=== PATIENT | male | born 1995 | race Caucasian/White ===

== ENCOUNTER 2023-03-06 09:57 | Emergency (ER) | payer SELFPAY ==
[2023-03-06 10:10] VITALS: RESP 18
[2023-03-06] MEDS ORDERED: SODIUM CHLORIDE 0.9% 500 ML 500 ML IV STA (10:27)
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
[2023-03-06] MEDS ORDERED: KETOROLAC 15 MG/ML 1 ML VIAL IVP STA (10:38)
[2023-03-06] MEDS ORDERED: BACITRACIN OINT 1 EACH PACKET TOPICAL ONE (10:38)
[2023-03-06 10:52] LABS: Basophils % (A) 0 %; Eosinophils # (A) 0.3 k/uL (0-0.7); Eosinophils % (A) 4 %; HCT 44.4 % (39.0-53.0); HGB 14.6 gm/dL (13.0-17.5); Lymphocytes # (A) 2.6 k/uL (1.0-4.8); Lymphocytes % (A) 37 %; MCH 26.5 pg (25.0-35.0); MCHC 32.9 g/dL (31.0-37.0); MCV 80.3 fL (80.0-100.0); Mean Platelet Volume 8.1; Monocytes # (A) 0.3 k/uL (0-1.0); Monocytes % (A) 4 %; Neutrophils # (A) 3.6 k/uL (1.3-7.7); Neutrophils % (A) 52 %; Platelet Count 301 k/uL (150-450); RBC 5.52 m/uL (4.30-5.90); RDW 13.4 % (11.5-15.5)
[2023-03-06 11:17] LABS: ALT 30 U/L (4-49); AST 33 U/L (17-59); African American GFR (CKD) >90 (>60 ml/min/1.73 sqM); Albumin 4.9 g/dL (3.5-5.0); Alkaline Phosphatase 59 U/L (38-126); Anion Gap 18 mmol/L; Blood Urea Nitrogen 17 mg/dL (9-20); Calcium 9.5 mg/dL (8.4-10.2); Carbon Dioxide 16 mmol/L (22-30); Chloride 106 mmol/L (98-107); Glucose 107 mg/dL (74-99); Magnesium 2.2 mg/dL (1.6-2.3); Non-African American GFR(CKD) >90 (>60 ml/min/1.73 sqM); Potassium 4.3 mmol/L (3.5-5.1); Sodium 140 mmol/L (137-145); Total Bilirubin 0.7 mg/dL (0.2-1.3); Total Protein 7.9 g/dL (6.3-8.2)
--- NOTE | 2023-03-06 11:36 | CT ---
EXAMINATION TYPE: CT brain cspine wo con CT DLP: 1372.6 mGycm, Automated exposure control for dose reduction was used. DATE OF EXAM: 03/06/2023 11:22 AM COMPARISON: None. CLINICAL INDICATION:Male, 27 years old with history of seizure activity; Seizure activity TECHNIQUE: Brain: Multiple axial CT images of the brain were obtained without IV contrast. Cspine: Axial CT images from the skull base to the inferior aspect of T2 we obtained without intraven ous contrast. Coronal and sagittal reformatted images were also reviewed. FINDINGS: Brain: Extra-axial spaces: No abnormal extra-axial fluid collections. Ventricular system: Within normal limits Cerebral parenchyma: No acute intraparenchymal hemorrhage or mass effect. The norman-white junction is well differentiated. Cerebellum: Unremarkable. Mass effect: No evidence of midline shift. Intracranial vasculature: unremarkable Soft tissues: Normal. Calvarium/osseous structures: No depressed skull fracture. Paranasal sinuses and mastoid air cells: Clear. Visualized orbits: Orbital contents are intact. Cervical spine: Fracture: None. Osseous structures: Unremarkable Vertebral alignment: Within normal limits. Spinal canal/Neural Foramina: No evidence of significant spinal canal narrowing. No evidence for sign ificant neural foraminal stenosis. Neck soft tissues: Prevertebral soft tissues are within normal limits. Other: The airway is patent. The lung apices are clear. IMPRESSION: 1. No acute intracranial process. 2. No evidence of cervical spine fracture.
[2023-03-06 12:46] VITALS: BP 120/68; PULSE 92; TEMP 98
== END 2023-03-06 12:44 | disposition home or self-care (01) ==
LOC: EC 09:57
DX: S50.311A Abrasion of right elbow, initial encounter (principal); S90.512A Abrasion, left ankle, initial encounter; S40.811A Abrasion of right upper arm, initial encounter; G40.909 Epilepsy, unspecified, not intractable, without status epilepticus; V89.2XXA Person injured in unspecified motor-vehicle accident, traffic, initial encounter; Y92.411 Interstate highway as the place of occurrence of the external cause
CPT/HCPCS: 36415; 93005; 80053; 80177; 83735; 85025; 72125; 70450; 99285; 96374; J1885

== ENCOUNTER 2023-08-18 01:03 | Emergency (ER) | payer OTHER ==
[2023-08-18 01:27] VITALS: TEMP 98.7
[2023-08-18] MEDS ORDERED: IBUPROFEN 800 MG TAB PO STA (01:28)
[2023-08-18] MEDS ORDERED: HYDROcodone/APAP 7.5-325MG 1 EACH TAB PO ONE (02:14)
--- NOTE | 2023-08-18 02:34 | ED ---
Upper Extremity HPI - General Chief Complaint: Extremity Injury, Upper Stated Complaint: [facility] - Right Shoulder Injury Time Seen by Provider: 08/18/23 01:19 Source: patient, RN notes reviewed Mode of arrival: ambulatory Limitations: no limitations - History of Present Illness Initial Comments: This is a 27-year-old male who presents to the emergency department for a right shoulder injury. Patient was outside at work, when he slipped and fell, landing on his right shoulder. Denies hitting his head or sustaining any loss of consciousness. He has had increasing pain to the shoulder and is now having difficulty moving the arm as a result. He has also noticed a bump or change in part of his shoulder since the fall. MD Complaint: Injury to:: right, shoulder - Related Data Previous Rx's Medication Instructions Recorded levETIRAcetam [Keppra] 500 mg PO Q12HR 30 Days #60 tab 03/06/23 HYDROcodone/APAP 5-325MG [[place]ascus 1 tab PO Q6HR PRN 3 Days #12 tab 08/18/23 5-325] Ibuprofen [Motrin] 800 mg PO Q8H PRN #30 tab 08/18/23 Allergies Allergy/AdvReac Type Severity Reaction Status Date / Time No Known Allergies Allergy Verified 08/18/23 01:16 Review of Systems ROS Statement: Those systems with pertinent positive or pertinent negative responses have been documented in the HPI. ROS Other: All systems not noted in ROS Statement are negative. Past Medical History Additional Past Medical History / Comment(s): seizure History of Any Multi-Drug Resistant Organisms: None Reported Additional Past Surgical History / Comment(s): foot surgery Smoking Status: Current every day smoker, Vaper Past Alcohol Use History: Occasional Past Drug Use History: Marijuana General Exam Limitations: no limitations General appearance: alert, in no apparent distress Head exam: Present: atraumatic, normocephalic, normal inspection Respiratory exam: Present: normal lung sounds bilaterally. Absent: respiratory distress, wheezes, rales, rhonchi, stridor Cardiovascular Exam: Present: regular rate, normal rhythm, normal heart sounds. Absent: systolic murmur, diastolic murmur, rubs, gallop, clicks Extremities exam: Present: other (Bump over the top of the right shoulder with posterior clavicle displacement. Pt cannot shrug shoulder. Positive cross body test. 2+ radial pulses. Structural Engineering Project Manager strength and sensation intact.) Neurological exam: Present: alert, oriented X3, CN II-XII intact Psychiatric exam: Present: normal affect, normal mood Skin exam: Present: warm, dry, intact, normal color. Absent: rash Course Vital Signs 08/18/23 01:14 Temperature 98.7 F Pulse Rate 66 Respiratory 18 Rate Blood Pressure 144/85 O2 Sat by Pulse 99 Oximetry Medical Decision Making - Medical Decision Making This is a 27-year-old male who presents to the emergency department for a right shoulder injury. Was pt. sent in by a medical professional or institution? @ -No Did you speak to anyone other than the patient for history? @ -No Did you review nursing and triage notes? @ -Yes, and I agree, it is accurate with regards to the patient's symptoms. Were old charts reviewed? @ -No Differential Diagnosis? @ -Differential Musculoskeletal: Muscular strain, contusion, ligament sprain, fracture, arthritis, septic arthritis, bursitis, cellulitis, muscle spasm, nerve compression, DVT, arterial occlusion, herpes zoster, electrolyte abnormality, tumor.... This is not meant to be in all inclusive list EKG interpreted by me (3pts min.)? @ -Not obtained X-rays interpreted by me (1pt min.)? @ -X-ray of the right shoulder and clavicle obtained. My interpretation identifies an AC joint separation and no acute fractures. CT interpreted by me (1pt min.)? @ -Not obtained U/S interpreted by me (1pt. min.)? @ -Not obtained What testing was considered but not performed? (CT, X-rays, U/S, labs)? Why? @ -None What meds were considered but not given? Why? @ -None Did you discuss the management of the patient with other professionals? @ -Yes, Mariah Perez with [facility]. She spoke with Dr. Toribio, who advised a sling and follow up in the office outpatient. Did you reconcile home meds? @ -No Was smoking cessation discussed for >3mins.? @ -I discussed smoking cessation for greater than 3 minutes. The risk of smoking were discussed with the patient including but not limited to risks of cancer, stroke, coronary artery disease and COPD. Also discussed with patient were multiple methods of quitting smoking. Lastly we discussed the financial cost of smoking. Was critical care preformed (if so, how long)? @ -No Were there social determinants of health that impacted care today? How? (Homelessness, low income, unemployed, alcoholism, drug addiction, transportation, low edu. Level, literacy, decrease access to med. care, half-way, rehab)? @ -No Was there de-escalation of care discussed even if they declined? (Discuss DNR or withdrawal of care, Hospice)? @ -No What co-morbidities impacted this encounter? (DM, HTN, Smoking, COPD, CAD, Cancer, CVA, Hep., AIDS, mental health diagnosis, sleep apnea, morbid obesity)? @ -None Was patient admitted / discharged? @ -Discharged. X-ray of the right shoulder and clavicle obtained. Radiology read the x-rays as negative, however the patient has notable deformities on exam and the x-ray images appeared consistent with an AC joint separation. There is concern that this may be a grade 4 AC joint separation. Case discussed with Mariah Perez with [facility]. She spoke with Dr. Toribio, who advised a sling and follow up in their office on an outpatient basis. Patient was put in a sling and discharged home in stable condition. Rx for Ibuprofen and [place] provided with dosing instructions reviewed. Information for orthopedic follow up provided, he is advised to contact them for a follow up appointment. Undiagnosed new problem with uncertain prognosis? @ -None Drug Therapy requiring intensive monitoring for toxicity (Heparin, Nitro, Insulin, Cardizem)? @ -None Were any procedures done? @ -None Diagnosis/symptom? @ -Right AC joint separation, fall Acute, or Chronic, or Acute on Chronic? @ -Acute Uncomplicated (without systemic symptoms) or Complicated (systemic symptoms)? @ -Uncomplicated Side effects of treatment? @ -None Exacerbation, Progression, or Severe Exacerbation] @ -Not applicable Poses a threat to life or bodily function? @ -This will limit his use of the right upper extremity. Return precautions reviewed in depth, the patient is instructed to return to the emergency department with any new, worsening, or concerning symptoms. Patient verbalized understanding. This case was discussed in detail with the attending ED physician, Dr. Dotson. Presentation, findings, and treatment plan discussed in detail as well. - Radiology Data Radiology results: report reviewed, image reviewed Disposition Clinical Impression: Fall, Nicotine dependence, Acromioclavicular joint separation Disposition: HOME SELF-CARE Instructions (If sedation given, give patient instructions): Acromioclavicular Separation (ED) Additional Instructions: Return to the emergency department with any new, worsening, or concerning symptoms. Alternate with ibuprofen and Tylenol as needed for pain relief. Take the [place] sparingly when your pain is the most severe and be aware that it may make you drowsy. Contact orthopedics as listed below for a follow-up appointment. Let them know that you were seen in the emergency department and d iagnosed with a grade 4 AC joint separation. Prescriptions: Ibuprofen [Motrin] 800 mg PO Q8H PRN #30 tab PRN Reason: Pain HYDROcodone/APAP 5-325MG [[place] 5-325] 1 tab PO Q6HR PRN 3 Days #12 tab PRN Reason: Pain Is patient prescribed a controlled substance at d/c from ED?: Yes When asked, does pt state using other controlled substances?: No If prescribed controlled substance>3 days was MAPS reviewed?: Prescribed <3 Days Referrals: None,Stated [Primary Care Provider] - 1-2 days Micheal Toribio, [Doctor of Osteopathic Medicine] - 1-2 days
--- NOTE | 2023-08-18 02:36 | XR ---
EXAM: XR Right Shoulder Complete, 2 or More Views CLINICAL HISTORY: ITS.REASON XR Reason: fall TECHNIQUE: Two or more views of the right shoulder. COMPARISON: No relevant prior studies available. FINDINGS: Bones/joints: Unremarkable. No acute fracture. No dislocation. Soft tissues: Unremarkable. IMPRESSION: Normal right shoulder x-rays.
[2023-08-18] MEDS ORDERED: IBUPROFEN 600 MG STARTER PACK 4 TAB BTL PO STA (03:30)
[2023-08-18] MEDS ORDERED: ACET/COD 300 MG/30 MG STARTER PACK 6 TAB BTL PO STA (03:30)
--- NOTE | 2023-08-18 03:42 | XR ---
EXAM: XR Right Clavicle Complete, 2 or More Views CLINICAL HISTORY: ITS.REASON XR Reason: Injury TECHNIQUE: Frontal and lordotic views of the right clavicle. COMPARISON: No relevant prior studies available. FINDINGS: Bones/joints: Unremarkable. No acute fracture. No dislocation. Soft tissues: Unremarkable. IMPRESSION: Normal right clavicle x-rays.
[2023-08-18 03:55] VITALS: BP 132/81; PULSE 75; RESP 16
== END 2023-08-18 03:52 | disposition home or self-care (01) ==
LOC: EC 01:03
DX: S43.101A Unspecified dislocation of right acromioclavicular joint, initial encounter (principal); F17.290 Nicotine dependence, other tobacco product, uncomplicated; F12.90 Cannabis use, unspecified, uncomplicated; W01.0XXA Fall on same level from slipping, tripping and stumbling without subsequent striking against object, initial encounter; Y99.0 Civilian activity done for income or pay
CPT/HCPCS: 99283; 99406

== ENCOUNTER → 2023-08-18 | Outpatient (CLI) | payer OTHER ==
--- NOTE | 2023-08-18 16:08 | CT ---
EXAMINATION TYPE: CT cervical spine wo con DATE OF EXAM: 08/18/2023 COMPARISON: None available. HISTORY: Slip and fall yesterday, right side neck pain and shoulder pain. CT DLP: 437.7 mGycm Automated exposure control for dose reduction was used. TECHNIQUE: CT scan of the cervical spine is obtained without contrast, axial images are obtained, sa gittal and coronal reformatted images are also reviewed. FINDINGS: Cervical spine is visualized in its entirety from C1 through upper thoracic levels, demonst rates satisfactory alignment without evidence of acute fracture or dislocation. Prevertebral soft ti ssue appears within normal limits. The C1-C2 articulation is within normal limits on the coronal alexander ges. IMPRESSION: There is no acute fracture or dislocation evident in the cervical spine.
== END | disposition home or self-care (01) ==
LOC: RADCTMAIN 15:34
PROVIDERS: ATTEND Emergency Medicine
DX: S13.4XXA Sprain of ligaments of cervical spine, initial encounter (principal); W01.0XXA Fall on same level from slipping, tripping and stumbling without subsequent striking against object, initial encounter
CPT/HCPCS: 72125